=== PATIENT | male | born 1990 | race Hispanic/Latino ===

== ENCOUNTER 2021-01-26 08:52 | Emergency (ER) | payer SELFPAY ==
[~2021-01-26] VITALS: Ht 167.6 cm; Wt 64.4 kg
[2021-01-26 08:58] VITALS: BP 123/69
[2021-01-26] MEDS ORDERED: AMOX500C2 PO (09:12)
[2021-01-26] MEDS ORDERED: FAMO-136 PO (09:12)
== END 2021-01-26 09:39 | disposition home or self-care (01) ==
LOC: EDH 08:52
DX: J02.0 Streptococcal pharyngitis (principal); R10.13 Epigastric pain